=== PATIENT | male | born 1960 | race African-American/Black ===

== ENCOUNTER 2021-01-10 18:06 | Inpatient (IN) | payer MEDICAID ==
[~2021-01-10] VITALS: Ht 180.3 cm; Wt 71.2 kg
[~2021-01-10 18:06] MED LIST: ABILIFY; TRAZODONE
[2021-01-10] MEDS ORDERED: NITROGLYCERIN 0.4MG TABLET SL SL PRN (18:30)
[2021-01-10] MEDS ORDERED: FUROSEMIDE 40MG/4ML VIAL IV ONE (18:30)
[2021-01-10] MEDS ORDERED: ASPIRIN 81MG TABLET PO ONE (18:30)
[2021-01-10 19:02] LABS: BASOPHILS % 1.1 % (0.0-2.0); HEMATOCRIT. 40.6 % (42.0-52.0); HEMOGLOBIN. 13.4 g/dL (14.0-18.0); LYMPHOCYTES % 8.5 % (20.0-50.0); MEAN CORPUSCULAR HEMOGLOBIN 30.2 pg (28.0-32.0); MEAN CORPUSCULAR VOLUME 91.6 fL (80.0-94.0); MEAN PLATELET VOLUME 8.6 fl (7.4-10.4); MONOCYTES % 6.4 % (2.0-8.0); PLATELET 349 x1000/uL (130-400); RED BLOOD CELL COUNT 4.43 mill/uL (4.7-6.1)
[2021-01-10 19:08] LABS: CHLORIDE 111 mEq/L (98-107)
[2021-01-10 22:00] VITALS: BP 156/106
[2021-01-10] MEDS ORDERED: HYDROCODONE/ACETAMINOPHEN 5/325MG TABLET PO PRN (23:00)
[2021-01-10] MEDS ORDERED: ONDANSETRON HCL 4MG/2ML INJ IV PRN (23:00)
[2021-01-10] MEDS ORDERED: ACETAMINOPHEN 325MG TABLET PO PRN (23:00)
[2021-01-10] MEDS ORDERED: DIPHENHYDRAMINE 50MG/ML VIAL IV PRN (23:00)
[2021-01-10] MEDS ORDERED: ENOXAPARIN 40MG/0.4ML SYR SUBCUT SCH (23:00)
[2021-01-10] MEDS ORDERED: LORAZEPAM 2MG/ML CPJ IV PRN (23:00)
[2021-01-10] MEDS ORDERED: ENOXAPARIN 30MG/0.3ML SYR SUBCUT SCH (23:00)
[2021-01-10] MEDS: IPRATROPIUM/ALBUTEROL 0.5-3(2.5)MG/3ML NEB NEB PRN (23:14)
[2021-01-10 23:58] LABS: CLARITY URINE CLEAR (CLEAR); COLOR URINE YELLOW (YELLOW); KETONES URINE NEGATIVE (NEGATIVE); LEUKOCYTE ESTERASE URINE NEGATIVE (NEGATIVE); NITRITE URINE NEGATIVE (NEGATIVE); OCCULT BLOOD URINE TRACE (NEGATIVE); PROTEIN URINE NEGATIVE (NEGATIVE); SPECIFIC GRAVITY URINE 1.009 (1.005-1.030); UROBILINOGEN URINE 0.2 E.U./dL (0.2-1.0)
[2021-01-11] VITALS (7 sets, daily range): BP systolic 121–168; BP diastolic 82–116
[2021-01-11 00:07] LABS: *AMPHETAMINES SCREEN URINE NEGATIVE (NEGATIVE); *BARBITURATES SCREEN URINE NEGATIVE (NEGATIVE); *BENZODIAZEPINES SCREEN URINE NEGATIVE (NEGATIVE); *COCAINE SCREEN URINE PRESUMTIVE POSITIVE (NEGATIVE); CANNABINOID URINE SCREEN NEGATIVE (NEGATIVE); METHADONE URINE SCREEN NEGATIVE (NEGATIVE); OPIATES URINE SCREEN NEGATIVE (NEGATIVE); PHENCYCLIDINE URINE SCREEN NEGATIVE (NEGATIVE)
[2021-01-11] MEDS: CLONIDINE 0.1MG TABLET PO PRN ×2 (00:14→06:19)
[2021-01-11] MEDS ORDERED: PNEUMOCOCCAL 23-VAL P-SAC VAC 0.5 ML IM ONE (03:00)
[2021-01-11] MEDS ORDERED: INFLUENZA VACCINE 05/PF 0.5 ML VIAL IM ONE (03:00)
[2021-01-11] MEDS: IPRATROPIUM/ALBUTEROL 0.5-3(2.5)MG/3ML NEB NEB PRN ×5 (04:26→20:31)
[2021-01-11] MEDS: FUROSEMIDE 40MG/4ML VIAL IV SCH ×2 (06:19→17:32)
[2021-01-11 08:02] LABS: BASOPHILS % 1.4 % (0.0-2.0); EOSINOPHILS % 1.2 % (0.0-5.0); HEMATOCRIT. 41.9 % (42.0-52.0); HEMOGLOBIN. 13.4 g/dL (14.0-18.0); MEAN CORPUSCULAR HEMOGLOBIN 29.4 pg (28.0-32.0); MEAN CORPUSCULAR VOLUME 91.9 fL (80.0-94.0); MEAN PLATELET VOLUME 8.5 fl (7.4-10.4); MONOCYTES % 7.5 % (2.0-8.0); NEUTROPHILS % 75.9 % (40.0-76.0); PLATELET 361 x1000/uL (130-400); RED BLOOD CELL COUNT 4.56 mill/uL (4.7-6.1); RED CELL DISTRIBUTION WIDTH 15.4 % (11.6-14.6)
[2021-01-11 08:31] LABS: CREATINE KINASE MB FRACTION 11.3 ng/mL (0.5-3.6)
[2021-01-11] MEDS: MULTIVITAMINS,THER W-MINERALS TABLET PO SCH (09:20)
[2021-01-11] MEDS: ASPIRIN 81MG EC TABLET PO SCH (09:20)
[2021-01-11] MEDS: FOLIC ACID 1MG TABLET PO SCH (09:20)
[2021-01-11] MEDS: AMLODIPINE 5MG TABLET PO SCH ×2 (14:14→22:35)
[2021-01-11] MEDS: NITROGLYCERIN OINT 1GM/INCH UDPKT TD SCH ×2 (14:18→22:35)
[2021-01-11 17:08] LABS: CREATINE KINASE MB FRACTION 10.6 ng/mL (0.5-3.6)
[2021-01-11] MEDS: ENOXAPARIN 40MG/0.4ML SYR SUBCUT SCH (22:34)
[2021-01-12] VITALS: BP 130/82
[2021-01-12] MEDS: IPRATROPIUM/ALBUTEROL 0.5-3(2.5)MG/3ML NEB NEB PRN ×3 (00:18→19:41)
[2021-01-12 04:00] VITALS: BP 146/102
[2021-01-12] MEDS: FUROSEMIDE 40MG/4ML VIAL IV SCH ×2 (06:32→17:09)
[2021-01-12 08:00] VITALS: BP 144/84
[2021-01-12 08:25] LABS: HEMATOCRIT. 44.6 % (42.0-52.0); HEMOGLOBIN. 14.5 g/dL (14.0-18.0); MEAN CORPUSCULAR HEMOGLOBIN 29.8 pg (28.0-32.0); MEAN CORPUSCULAR VOLUME 91.5 fL (80.0-94.0); RED BLOOD CELL COUNT 4.88 mill/uL (4.7-6.1)
[2021-01-12 08:26] LABS: BASOPHILS % 1.2 % (0.0-2.0); EOSINOPHILS % 1.9 % (0.0-5.0); MEAN PLATELET VOLUME 8.7 fl (7.4-10.4); MONOCYTES % 7.2 % (2.0-8.0); NEUTROPHILS % 78.7 % (40.0-76.0); PLATELET 354 x1000/uL (130-400); RED CELL DISTRIBUTION WIDTH 14.6 % (11.6-14.6)
[2021-01-12] MEDS: MULTIVITAMINS,THER W-MINERALS TABLET PO SCH (09:12)
[2021-01-12] MEDS: AMLODIPINE 5MG TABLET PO SCH ×2 (09:13→20:26)
[2021-01-12] MEDS: CLONIDINE 0.1MG TABLET PO SCH ×3 (09:13→23:07)
[2021-01-12] MEDS: ASPIRIN 81MG EC TABLET PO SCH (09:13)
[2021-01-12] MEDS: NITROGLYCERIN OINT 1GM/INCH UDPKT TD SCH ×2 (09:13→20:26)
[2021-01-12] MEDS: FOLIC ACID 1MG TABLET PO SCH (09:13)
[2021-01-12 12:00] VITALS: BP 132/80
[2021-01-12 16:00] VITALS: BP 124/82
[2021-01-12 20:00] VITALS: BP 119/82
[2021-01-12] MEDS: ENOXAPARIN 40MG/0.4ML SYR SUBCUT SCH (20:25)
[2021-01-13] VITALS (7 sets, daily range): BP systolic 90–126; BP diastolic 57–91
[2021-01-13] MEDS: FUROSEMIDE 40MG/4ML VIAL IV SCH ×2 (07:09→17:20)
[2021-01-13] MEDS: CLONIDINE 0.1MG TABLET PO SCH ×2 (07:09→21:05)
[2021-01-13 07:36] LABS: BASOPHILS % 1.4 % (0.0-2.0); EOSINOPHILS % 3.9 % (0.0-5.0); HEMATOCRIT. 46.2 % (42.0-52.0); HEMOGLOBIN. 15.1 g/dL (14.0-18.0); LYMPHOCYTES % 16.4 % (20.0-50.0); MEAN CORPUSCULAR HEMOGLOBIN 29.5 pg (28.0-32.0); MEAN CORPUSCULAR VOLUME 90.5 fL (80.0-94.0); MEAN PLATELET VOLUME 8.9 fl (7.4-10.4); MONOCYTES % 8.2 % (2.0-8.0); NEUTROPHILS % 70.1 % (40.0-76.0); PLATELET 356 x1000/uL (130-400); RED CELL DISTRIBUTION WIDTH 14.9 % (11.6-14.6)
[2021-01-13] MEDS: IPRATROPIUM/ALBUTEROL 0.5-3(2.5)MG/3ML NEB NEB PRN ×2 (08:25→21:18)
[2021-01-13] MEDS: AMLODIPINE 5MG TABLET PO SCH (08:59)
[2021-01-13] MEDS: NITROGLYCERIN OINT 1GM/INCH UDPKT TD SCH ×3 (08:59→21:04)
[2021-01-13] MEDS: FOLIC ACID 1MG TABLET PO SCH (09:06)
[2021-01-13] MEDS: MULTIVITAMINS,THER W-MINERALS TABLET PO SCH (09:06)
[2021-01-13] MEDS: ASPIRIN 81MG EC TABLET PO SCH (09:06)
[2021-01-13] MEDS: DOCUSATE SODIUM 100MG CAPSULE PO SCH (17:20)
[2021-01-13] MEDS: ENOXAPARIN 40MG/0.4ML SYR SUBCUT SCH (21:04)
[2021-01-13] MEDS: AMLODIPINE 2.5MG TABLET PO SCH (21:05)
[2021-01-14] VITALS: BP 104/63
[2021-01-14 04:00] VITALS: BP 111/63
[2021-01-14 07:45] VITALS: BP 119/86
[2021-01-14] MEDS: CLONIDINE 0.1MG TABLET PO SCH (08:14)
[2021-01-14] MEDS: MULTIVITAMINS,THER W-MINERALS TABLET PO SCH (08:56)
[2021-01-14] MEDS: DOCUSATE SODIUM 100MG CAPSULE PO SCH (08:56)
[2021-01-14] MEDS: ASPIRIN 81MG EC TABLET PO SCH (08:56)
[2021-01-14] MEDS: FUROSEMIDE 40MG/4ML VIAL IV SCH (08:57)
[2021-01-14] MEDS: NITROGLYCERIN OINT 1GM/INCH UDPKT TD SCH (08:57)
[2021-01-14] MEDS: AMLODIPINE 2.5MG TABLET PO SCH (08:57)
[2021-01-14] MEDS: FOLIC ACID 1MG TABLET PO SCH (09:10)
[2021-01-14 12:00] VITALS: BP 104/75
[2021-01-14 13:16] VITALS: BP 104/75
[2021-01-14] MEDS ORDERED: ASPI-1406 PO (13:38)
[2021-01-14] MEDS ORDERED: AMLO2.5T45 PO (13:38)
[2021-01-14] MEDS ORDERED: CLON0.1T PO (13:38)
[2021-01-14] MEDS ORDERED: FURO10VI3 PO (13:38)
== END 2021-01-14 16:00 | disposition home or self-care (01) | DRG 194 ==
LOC: ER 18:06 → 5WST 19:32 → EDBEDREQ 19:38 → EDBEDREQTM 19:38 → ENRESERV 20:06
PROVIDERS: ADMIT Internal Medicine Nephrology; ATTEND Internal Medicine Nephrology
DX: I13.0 Hypertensive heart and chronic kidney disease with heart failure and stage 1 through stage 4 chronic kidney disease, or unspecified chronic kidney disease (principal); N17.9 Acute kidney failure, unspecified; E87.8 Other disorders of electrolyte and fluid balance, not elsewhere classified; E44.1 Mild protein-calorie malnutrition; I50.21 Acute systolic (congestive) heart failure; F14.90 Cocaine use, unspecified, uncomplicated; F17.210 Nicotine dependence, cigarettes, uncomplicated; F20.9 Schizophrenia, unspecified; J44.9 Chronic obstructive pulmonary disease, unspecified; N18.9 Chronic kidney disease, unspecified; I42.9 Cardiomyopathy, unspecified; Z79.899 Other long term (current) drug therapy; M19.90 Unspecified osteoarthritis, unspecified site; Z68.21 Body mass index [BMI] 21.0-21.9, adult; Z71.6 Tobacco abuse counseling
CPT/HCPCS: 36415; 71045; 80048; 80053; 80305; 81003; 82550; 82553; 83880; 84443; 84484; 85025; 90686; 90732; 93005; 93306; 94003; 94640; 99291; J1650; J1940

== ENCOUNTER 2021-12-13 10:42 | Emergency (ER) | payer MEDICAID ==
[~2021-12-13] VITALS: Ht 177.8 cm; Wt 76.0 kg
[~2021-12-13 10:42] MED LIST changes: -ABILIFY; +ASPI-1406 PO; +ATOR40TA70 MT; +LOSA25TA3 PO; -TRAZODONE
[2021-12-13 10:44] VITALS: BP 148/96
[2021-12-13] MEDS ORDERED: TETANUS, DIPHTHERIA, PERTUSSIS VAC/PF 0.5ML (>10YR OLD) IM ONE (11:15)
[2021-12-13] MEDS ORDERED: IBUPROFEN 600MG TABLET PO ONE (11:15)
== END 2021-12-13 11:36 ==
LOC: ER 10:51
DX: S00.81XA Abrasion of other part of head, initial encounter (principal); F91.8 Other conduct disorders; R03.0 Elevated blood-pressure reading, without diagnosis of hypertension; Y04.2XXA Assault by strike against or bumped into by another person, initial encounter; Y93.89 Activity, other specified; Y92.512 Supermarket, store or market as the place of occurrence of the external cause
CPT/HCPCS: 90471; 90715; 99283

== ENCOUNTER 2021-12-15 01:35 | Emergency (ER) | payer MEDICAID ==
[~2021-12-15] VITALS: Ht 175.3 cm; Wt 77.0 kg
[2021-12-15] MEDS ORDERED: LORAZEPAM 2MG/ML CPJ IM PRN (02:30)
[2021-12-15] MEDS ORDERED: ACETAMINOPHEN 500MG TABLET PO ONE (02:30)
[2021-12-15 03:08] LABS: BASOPHILS % 1.2 % (0.0-2.0); EOSINOPHILS % 0.7 % (0.0-5.0); HEMATOCRIT. 36.7 % (42.0-52.0); HEMOGLOBIN. 12.1 g/dL (14.0-18.0); LYMPHOCYTES % 7.1 % (20.0-50.0); MEAN CORPUSCULAR HEMOGLOBIN 30.2 pg (28.0-32.0); MEAN CORPUSCULAR VOLUME 91.8 fL (80.0-94.0); MONOCYTES % 6.5 % (2.0-8.0); NEUTROPHILS % 84.5 % (40.0-76.0); PLATELET 411 x1000/uL (130-400); RED BLOOD CELL COUNT 3.99 mill/uL (4.7-6.1); RED CELL DISTRIBUTION WIDTH 13.7 % (11.6-14.6)
[2021-12-15 03:17] LABS: CHLORIDE 106 mEq/L (98-107)
[2021-12-15 03:21] LABS: ETHANOL BLOOD < 10 mg/dL
[2021-12-15] MEDS ORDERED: FUROSEMIDE 40MG/4ML VIAL IVP SCH (03:30)
[2021-12-15 04:31] LABS: *BARBITURATES SCREEN URINE NEGATIVE (NEGATIVE); *BENZODIAZEPINES SCREEN URINE PRESUMTIVE POSITIVE (NEGATIVE); *COCAINE SCREEN URINE NEGATIVE (NEGATIVE)
[2021-12-15 04:32] LABS: *AMPHETAMINES SCREEN URINE NEGATIVE (NEGATIVE); CANNABINOID URINE SCREEN PRESUMTIVE POSITIVE (NEGATIVE); METHADONE URINE SCREEN NEGATIVE (NEGATIVE); OPIATES URINE SCREEN NEGATIVE (NEGATIVE); PHENCYCLIDINE URINE SCREEN NEGATIVE (NEGATIVE)
[2021-12-15] MEDS ORDERED: RISPERIDONE 1MG TABLET PO SCH (09:00)
[2021-12-15 12:00] VITALS: BP 136/80
== END 2021-12-15 12:18 | disposition home or self-care (01) ==
LOC: ER 01:35
DX: R07.89 Other chest pain (principal); R51.9 Headache, unspecified; R45.851 Suicidal ideations; F20.9 Schizophrenia, unspecified; R06.09 Other forms of dyspnea; I11.0 Hypertensive heart disease with heart failure; I50.9 Heart failure, unspecified; F14.90 Cocaine use, unspecified, uncomplicated; F13.90 Sedative, hypnotic, or anxiolytic use, unspecified, uncomplicated; F12.90 Cannabis use, unspecified, uncomplicated
CPT/HCPCS: 36415; 70450; 71045; 80053; 80305; 80320; 83880; 84484; 85025; 93005; 96372; 96374; 99285; J1940; J2060; G0480

== ENCOUNTER 2021-12-18 21:37 | Emergency (ER) | payer MEDICAID ==
[~2021-12-18] VITALS: Ht 175.3 cm; Wt 90.0 kg
[2021-12-18 23:15] VITALS: BP 177/80
[2021-12-19] MEDS ORDERED: IBUP-2029 MT (03:04)
== END 2021-12-19 04:11 | disposition home or self-care (01) ==
LOC: ER 21:37
DX: S09.90XA Unspecified injury of head, initial encounter (principal); F12.10 Cannabis abuse, uncomplicated; Y04.0XXA Assault by unarmed brawl or fight, initial encounter; Y93.89 Activity, other specified; Y92.89 Other specified places as the place of occurrence of the external cause; Y99.8 Other external cause status
CPT/HCPCS: 99284

== ENCOUNTER 2021-12-19 06:17 | Emergency (ER) | payer MEDICAID ==
[~2021-12-19] VITALS: Ht 180.3 cm; Wt 88.0 kg
[~2021-12-19 06:17] MED LIST changes: +IBUP-2029 MT
[2021-12-19 06:30] VITALS: BP 150/86
== END 2021-12-19 07:00 | disposition left against medical advice (07) ==
LOC: ER 06:17
DX: R51.9 Headache, unspecified (principal); F41.9 Anxiety disorder, unspecified; F12.10 Cannabis abuse, uncomplicated; Z79.899 Other long term (current) drug therapy
CPT/HCPCS: 99283

== ENCOUNTER 2021-12-30 13:00 | Inpatient (IN) | payer MEDICAID ==
[~2021-12-30] VITALS: Ht 172.7 cm; Wt 90.7 kg
[2021-12-30] MEDS ORDERED: ASPIRIN 81MG TABLET PO ONE (14:00)
[2021-12-30] MEDS ORDERED: KETOROLAC 15MG/ML VIAL IV ONE (14:00)
[2021-12-30 14:32] LABS: BASOPHILS % 0.9 % (0.0-2.0); EOSINOPHILS % 2.3 % (0.0-5.0); HEMOGLOBIN. 11.7 g/dL (14.0-18.0); LYMPHOCYTES % 8.8 % (20.0-50.0); MEAN CORPUSCULAR HEMOGLOBIN 31.9 pg (28.0-32.0); MEAN CORPUSCULAR VOLUME 92.7 fL (80.0-94.0); MEAN PLATELET VOLUME 7.6 fl (7.4-10.4); MONOCYTES % 8.9 % (2.0-8.0); NEUTROPHILS % 79.1 % (40.0-76.0); PLATELET 438 x1000/uL (130-400); RED BLOOD CELL COUNT 3.67 mill/uL (4.7-6.1); RED CELL DISTRIBUTION WIDTH 13.8 % (11.6-14.6)
[2021-12-30 14:38] LABS: CHLORIDE 106 mEq/L (98-107)
[2021-12-30 22:00] VITALS: BP 138/66
[2021-12-30] MEDS ORDERED: ONDANSETRON HCL 4MG/2ML INJ IV PRN (23:00)
[2021-12-30] MEDS ORDERED: CLONIDINE 0.1MG TABLET PO PRN (23:00)
[2021-12-30] MEDS ORDERED: ZOLPIDEM TARTRATE 5MG TABLET PO PRN (23:00)
[2021-12-30] MEDS ORDERED: ENOXAPARIN 40MG/0.4ML SYR SUBCUT SCH (23:00)
[2021-12-30] MEDS: FUROSEMIDE 40MG/4ML VIAL IVP SCH (23:00)
[2021-12-30] MEDS ORDERED: DIPHENHYDRAMINE 50MG/ML VIAL IV PRN (23:00)
[2021-12-30] MEDS ORDERED: ACETAMINOPHEN 325MG TABLET PO PRN ×2 (23:00)
[2021-12-30] MEDS ORDERED: HYDRALAZINE 20MG/ML VIAL IV PRN (23:00)
[2021-12-30] MEDS ORDERED: MAGNESIUM/ALUMINUM HYDROXIDE/SIMETHICONE 30ML UDC PO PRN (23:00)
[2021-12-31] VITALS (7 sets, daily range): BP systolic 142–159; BP diastolic 62–92
[2021-12-31] MEDS: SODIUM CHLORIDE 0.9% INJ 3ML FLUSH IVF SCH ×2 (06:46→13:46)
[2021-12-31] MEDS: FUROSEMIDE 40MG/4ML VIAL IVP SCH (08:57)
[2021-12-31] MEDS ORDERED: ENOXAPARIN 30MG/0.3ML SYR SUBCUT SCH (09:00)
[2021-12-31] MEDS ORDERED: POTASSIUM CHLORIDE 10MEQ TABLET SR PO SCH (09:00)
[2021-12-31] MEDS ORDERED: ASPIRIN 81MG EC TABLET PO SCH (09:00)
[2021-12-31] MEDS ORDERED: AMLODIPINE 5MG TABLET PO SCH (09:00)
[2021-12-31] MEDS ORDERED: INFLUENZA VACCINE 05/PF 0.5 ML SYRINGE IM ONE (17:00)
[2021-12-31] MEDS ORDERED: AMLO10TA80 MT (17:45)
[2022-01-01] MEDS ORDERED: INFLUENZA VACCINE 05/PF 0.5 ML SYRINGE IM ONE (09:00)
== END 2021-12-31 18:00 | disposition home or self-care (01) | DRG 194 ==
LOC: ER 13:00 → 8WST 15:45 → EDBEDREQ 16:02 → ENRESERV 18:59
PROVIDERS: ADMIT Internal Medicine; ATTEND Internal Medicine
DX: I13.0 Hypertensive heart and chronic kidney disease with heart failure and stage 1 through stage 4 chronic kidney disease, or unspecified chronic kidney disease (principal); F19.11 Other psychoactive substance abuse, in remission; M79.89 Other specified soft tissue disorders; N18.9 Chronic kidney disease, unspecified; I50.23 Acute on chronic systolic (congestive) heart failure; Z59.00 Homelessness unspecified; Z82.49 Family history of ischemic heart disease and other diseases of the circulatory system; Z87.891 Personal history of nicotine dependence; Z59.01 Sheltered homelessness; Z79.82 Long term (current) use of aspirin; Z79.899 Other long term (current) drug therapy
CPT/HCPCS: 36415; 71045; 78582; 80053; 83880; 84484; 85025; 85379; 90686; 93005; 93970; 99285; A9558; J1650; J1885; J1940

== ENCOUNTER 2022-01-01 00:41 | Emergency (ER) | payer MEDICAID ==
[~2022-01-01] VITALS: Ht 182.9 cm; Wt 87.0 kg
[~2022-01-01 00:41] MED LIST changes: +AMLO10TA80 MT
[2022-01-01 00:50] VITALS: BP 114/65
== END 2022-01-01 02:45 | disposition home or self-care (01) ==
LOC: ER 01:00
DX: R07.89 Other chest pain (principal); I11.0 Hypertensive heart disease with heart failure; I50.9 Heart failure, unspecified; Z59.01 Sheltered homelessness
CPT/HCPCS: 93005; 99283

== ENCOUNTER 2022-12-16 20:16 | Emergency (ER) | payer MEDICAID, OTHER ==
[~2022-12-16] VITALS: Ht 180.3 cm; Wt 100.0 kg
[2022-12-16 20:25] VITALS: BP 124/60
== END 2022-12-16 20:40 | disposition home or self-care (01) ==
LOC: ER 20:16
DX: R07.89 Other chest pain (principal); R55 Syncope and collapse; R42 Dizziness and giddiness; I50.9 Heart failure, unspecified; Z79.82 Long term (current) use of aspirin; Z79.899 Other long term (current) drug therapy
CPT/HCPCS: 99283

== ENCOUNTER 2023-10-25 13:59 | Emergency (ER) | payer OTHER ==
[~2023-10-25] VITALS: Ht 188 cm; Wt 86.0 kg
[~2023-10-25 13:59] MED LIST changes: +LOSA-412 PO; -LOSA25TA3 PO
[2023-10-25 14:07] VITALS: BP 160/87; PULSE 96; RESP 16; TEMP 98.2; O2SAT 98
[2023-10-25] MEDS ORDERED: NALO4SPR BOTHNSTRLS (14:26)
== END 2023-10-25 14:53 | disposition left against medical advice (07) ==
LOC: ER 14:47
DX: T40.2X1A Poisoning by other opioids, accidental (unintentional), initial encounter (principal); I11.0 Hypertensive heart disease with heart failure; I50.9 Heart failure, unspecified; F12.90 Cannabis use, unspecified, uncomplicated; Y92.89 Other specified places as the place of occurrence of the external cause
CPT/HCPCS: 99283

== ENCOUNTER 2023-10-30 19:25 | Emergency (ER) | payer MEDICAID, OTHER ==
[~2023-10-30] VITALS: Ht 182.9 cm; Wt 80.0 kg
[~2023-10-30 19:25] MED LIST changes: +NALO4SPR BOTHNSTRLS
[2023-10-30 19:38] VITALS: BP 162/82; PULSE 72; RESP 16; TEMP 98.2; O2SAT 100
== END 2023-10-31 01:30 | disposition left against medical advice (07) ==
LOC: ER 19:25
DX: R10.84 Generalized abdominal pain (principal); R11.2 Nausea with vomiting, unspecified; F12.10 Cannabis abuse, uncomplicated; I11.0 Hypertensive heart disease with heart failure; I50.9 Heart failure, unspecified
CPT/HCPCS: 99283